=== PATIENT | female | born 1965 | race Caucasian/White ===

== ENCOUNTER 2023-12-01 08:18 | Emergency (ER) | payer SELFPAY ==
[2023-12-01 08:21] VITALS: BP 170/104; BMI 40.6
[2023-12-01 08:42] LABS: % Basophils 0.7 % (0-2); % Eosinophils 0.5 % (0-6); % Immature Granulocytes 0.2 % (0-0.5); % Lymphocytes 29.6 % (20.5-51.1); % Monocytes 4.1 % (1.7-9.3); % Neutrophils 64.9 % (42.2-75.2); Absolute Basophils 0.1 10^3/uL (0-0.2); Absolute Eosinophils 0.1 10^3/uL (0-0.7); Absolute Lymphocytes 2.7 10^3/uL (1.2-3.4); Absolute Monocytes 0.4 10^3/uL (0.1-0.6); Hematocrit 45.4 % (37.0-47.0); Hemoglobin 15.8 g/dL (12.0-16.0); Mean Corp Hgb Conc. 34.8 g/dL (33.0-37.0); Mean Corpuscular Hgb 30.8 pg (27.0-31.0); Mean Corpuscular Volume 88.5 fL (81.0-99.0); Mean Platelet Volume 10.5 fL (7.4-10.4); Nucleated Red Blood Cells % 0 %; Platelet Count 289 10^3/uL (130-400); Red Blood Cell Count 5.13 10^6/uL (4.20-5.40); Red Cell Dist. Width 12.2 % (11.5-14.5); White Blood Cell Count 9.2 10^3/uL (4.8-10.8)
[2023-12-01] MEDS: NSS 1000 IV (08:49)
[2023-12-01 09:08] LABS: ALT (SGPT) 24 U/L (0-35); AST (SGOT) 30 U/L (14-36); Acetaminophen < 10 ug/ml (10-30); Albumin 4.9 g/dl (3.5-5.0); Alkaline Phosphatase 96 U/L (38-126); Blood Urea Nitrogen 15 mg/dl (7-17); Calcium 10.7 mg/dl (8.4-10.2); Carbon Dioxide 21 mmol/L (22-30); Chloride 107 mmol/L (98-107); Estimated Creatinine Clearance 89 ml/min; Glucose 161 mg/dl (70-99); Magnesium 1.7 mg/dl (1.6-2.3); Potassium 4.2 mmol/L (3.5-5.1); Salicylate < 1.0 mg/dl (2.0-20.0); Sodium 139 mmol/L (135-145); Total Bilirubin 0.6 mg/dl (0.2-1.3); eGFR > 60.00
[2023-12-01 09:10] LABS: Alcohol None Detected
[2023-12-01 09:26] LABS: HCG, Serum Qualitative Screen Negative
[2023-12-01] MEDS: ATIVAN 1 MG IV (09:31)
[2023-12-01 10:00] VITALS: BP 141/101
--- NOTE | 2023-12-01 10:12 | ED.GENMED ---
History of Present Illness
General
Chief Complaint: Crisis Evaluation
Source: patient, family and ambulance crew
Time Seen by Provider: 12/01/23 08:19
Travel History
Have you had any contact with someone who has COVID-19?: No
Do you have any symptoms of coronavirus? Fever > 100 degrees, chills, cough, shortness of breath, sore throat, loss of taste or smell, muscle aches, or headache?: No
History of Present Illness
History of Present Illness:
58-year-old female who presents after her son found her to be acting abnormally. The son states that she typically is downstairs drink coffee when he gets up. Today he noticed she was acting in a odd behavior. He then noticed her room was
disheveled. There is a half empty jar of Benadryl that he uses for his allergies. He did also knows there was Tide in the bedroom. EMS reports she did vomit once on the ride over but it did not smell like cleaning solution. Patient does admit
she took a handful or more of Benadryl so she could 'sleep'. Son states that she has been sending text messages that were threatening suicide. The patient has had apparently is somewhat rough social history in the past. Son states that she
typically works with him and is sharp and with it. Today she was extremely confused. Patient is reporting a dry mouth on my evaluation. She denies ingesting any Tide
Past History
Past History
ED Past Medical History: HTN, Hypercholesterolemia and Other (Diverticulitis, shingles, anxiety, depressions, suicidal ideation)
ED Past Surgical History: Orthopedic
Phy Exam
Physical Exam
Physical Exam:
CONSTITUTIONAL Patient alert and oriented to person, place. Vital signs reviewed.
HEAD atraumatic, normocephalic.
EYES eyelids normal to inspection, Pupils equally round and reactive to light, Extraocular muscles intact, Conjunctiva normal, Sclera normal.
NECK normal range of motion, Trachea midline, no jugular venous distention.
RESPIRATORY CHEST No respiratory distress noted, Chest expansion equal, Bilateral breath sounds clear.
CARDIOVASCULAR regular and tachycardic
ABDOMEN abdomen nontender, Bowel sounds normal. No distention.
BACK normal inspection, no obvious deformities
UPPER EXTREMITY range of motion normal, Motor strength normal, no cyanosis, no edema.
LOWER EXTREMITY range of motion normal, Motor strength normal, no cyanosis, no edema.
NEURO Speech normal, No focal motor deficits, confused at times, cranial Nerves intact to screening exam.
SKIN skin warm, dry, and normal in color.
PSYCHIATRIC a bit anxious, sometimes confused.
Course
Orders/Labs/Results
Orders:
Orders
12/01/23 08:19
Electrocardiogram (*1) Stat
Reason for Study: Other
Other Reason for Exam: overdose
Cardiac Monitoring- Treatment ONCE
EKG- Treatment ONCE
Test Result ONCE
12/01/23 08:29
Crisis Consult Urgent
Reason for Consult: depression/thoughts of suicide
12/01/23 08:31
Acetaminophen Urgent
Alcohol Urgent
Complete Blood Count/With Diff Urgent
Comprehensive Metabolic Panel Urgent
Free T4 Urgent
Comment: ADD ON
HCG, Serum Qualitative Screen Urgent
Magnesium Urgent
Comment: ADD ON
Salicylate Urgent
TSH Urgent
Comment: ADD ON
12/01/23 08:43
Add On- LAB Urgent
Tests Added?: TSH, free T4
12/01/23 08:44
Add On- LAB Urgent
Tests Added?: Mg
0.9% Sodium Chloride 1000 ml [Nss] 1,000 ml IV BOLUS
12/01/23 09:26
Lorazepam [Ativan] 1 mg IV NOW STA
12/01/23 10:14
PSYCHIATRY CONSULT Urgent
Consulting Provider: Maurisio Handley
Was physician already notified: Yes
12/01/23 10:33
Electrocardiogram (*1) Urgent
Reason for Study: Other
Other Reason for Exam: OD
EKG- Treatment ONCE
12/01/23 11:41
CT Head W/o Iv Contrast Urgent
Comment:
Reason For Exam: change in ms
12/01/23 16:06
Urinalysis Reflex To Culture Urgent
Date Specimen was Collected: 12/01/23
Time Specimen was Collected: 16:00
Urine Drug Abuse Screen Urgent
Date Specimen was Collected: 12/01/23
Time Specimen was Collected: 16:00
Abnormal Lab Results
12/01/23
08:31
MPV 10.5 H fL
(7.4-10.4)
Carbon Dioxide 21 L mmol/L
(22-30)
Glucose 161 H mg/dl
(70-99)
Calcium 10.7 H mg/dl
(8.4-10.2)
TSH 5.12 H uIU/ml
(0.47-4.68)
Salicylates < 1.0 L mg/dl
(2.0-20.0)
Acetaminophen < 10 L ug/ml
(10-30)
12/01/23 08:31
12/01/23 08:31
Vital Signs
Initial and Last Documented VS:
Initial Vital Signs
Temp Pulse Resp BP
98.6 F 145 22 170/104
12/01/23 08:21 12/01/23 08:21 12/01/23 08:21 12/01/23 08:21
Last Documented Vital Signs
Temp Pulse Resp BP Pulse Ox
99.0 F 110 18 155/104 96
12/01/23 16:04 12/01/23 16:04 12/01/23 16:04 12/01/23 16:04 12/01/23 16:04
MDM/Problems Addressed
MDM/Problems Addressed:
Benadryl overdose, suicidal gestures
*Radiology
Radiology exam reviewed: radiology read reviewed
*Pulse Oximetry
Patient hypoxic: no
*EKG
Interpretation: abnormal
Rate: tachycardiac
Rhythm: sinus
QRS Pattern: normal QRS
Ischemia: non-specific ST changes
*Preschool Education Director Interpretation
Rate: tachycardiac
Interpretation: normal
Rhythm: sinus
*Critical Care Note
Total Time (30-74mins, 75-104mins- exclusive of procedures): 35 minutes
Data Reviewed
Source: patient and family
Prescriptions/Medications Considered But Not Given:
Considered antipsychotics but trial benzodiazepines in light of Benadryl overdose
Patient Management
Discussion with other providers: Stock Transfer Clerk (Case discussed with psychiatry.)
Escalation/DeEscalation of care consider admission/obs:
58-year-old female who overdosed likely on Benadryl. Patient denies ingestion of laundry detergent. In addition, she has had no GI symptoms here in the emergency department. Toxidrome consistent with anticholinergic effect. She is a little bit
red, tachycardic and dry. Psychiatry consult
ED Attending Note
-
Portions of this chart may have been created with voice recognition software.� Occasional wrong word or��sound alike� substitutions may have occurred due to the inherent limitations of voice recognition software.
Discharge Plan
Departure
Patient Disposition: Psych Facility
Date of Disposition: 12/01/23
Time of Disposition: 10:12
Discharge Problem:
Suicidal ideation, benadryl overdose
Referrals:
UNKNOWN - PT DOES,NOT KNOW [Family Provider] -
Interventions
Interventions:
*Risk Screen - Suicide Last Done: 12/01/23 08:21
*General Assessment Last Done: 12/01/23 08:21
*Neglect/Abuse Screening Last Done: 12/01/23 08:21
ED- Fall Risk Assessment Last Done: 12/01/23 08:32
*ED COVID-19 Vaccine History Last Done: 12/01/23 08:21
ED-Psychological Assessment Last Done: 12/01/23 08:32
Discharge Date and Time
Print Language: YAKUT
[2023-12-01 10:26] LABS: Free T4 1.06 ng/dl (0.78-2.19)
[2023-12-01 10:41] LABS: TSH 5.12 uIU/ml (0.47-4.68)
--- NOTE | 2023-12-01 15:55 | W.PN.UPDATE ---
Update Note
Progress Note Update
Pt seen for 302 exam. Pt admitted after reported OD on antihistamine. Pt noted found by son apparently hallucinating and confused, with open bottle of Tide and half-empty bottle of antihistamine. Pt left a 3-page single-spaced typed suicide note,
with rambling but specific content about her impending , stating she does not want to be a burden. Pt seen resting on stretcher. Pt gives irrelevant answers to questions, stated it is a :very long story' regarding her OD. Pt admits to having
a 'breakdown.' Reviewed case briefly with ED physician, who reports the medical findings are consistent with antihistamine OD. Pt still seems to be a little confused/disorganized. QTc was 517 at 8:19 am, improved to 447 at 10:33 am. Pt is not
noted to be on any Rx meds. Pt is not able to give additional history. Insight and judgment appear limited.
Imp: Unspecified Depressive d/o, R/o Bipolar d/o
Rec: [id number] upheld. Will pursue inpatient psych placement
[2023-12-01 16:04] VITALS: BP 155/104
[2023-12-01 16:34] LABS: Urine Albumin Negative (Neg - Trace); Urine Bilirubin Negative (Negative); Urine Character Clear (Clear); Urine Color Straw; Urine Glucose Negative (Negative); Urine Ketone Negative (Negative); Urine Leukocyte Negative (Negative); Urine Nitrite Negative (Negative); Urine Occult Blood Negative (Negative); Urine Specific Gravity 1.015 (<1.030); Urine Urobilinogen Negative (Neg - 1+)
[2023-12-01 16:56] LABS: Amphetamines Negative (Negative); Barbiturates Negative (Negative); Benzodiazepines Negative (Negative); Buprenorphine Negative (Negative); Cocaine Negative (Negative); Marijuana Negative (Negative); Methadone Negative (Negative); Methamphetamines Negative (Negative); Opiates Negative (Negative); Phencyclidine Negative (Negative); Tricyclic Antidepressants Negative (Negative)
--- NOTE | 2023-12-02 09:10 | ED.CRISIS ---
ED Crisis Note
ED Crisis Note
Subjective:
I spoke to son at bedside. Patient feels that she needs her metoprolol.
Objective:
Patient just slightly agitated but overall is cooperative
Assessment/Plan:
Will give metoprolol 25 mg twice daily starting now
[2023-12-02 09:16] VITALS: BP 150/113
[2023-12-02] MEDS: LOPRESSOR 25 MG PO (09:16)
== END 2023-12-02 09:29 ==
LOC: EMR 08:18
PROVIDERS: CONSULT PHYSICIAN Psychiatry & Neurology Psychiatry; EMERGENCY PHYSICIAN Emergency Medicine
DX: R45.851 Suicidal ideations (principal); T45.0X2A Poisoning by antiallergic and antiemetic drugs, intentional self-harm, initial encounter
CPT/HCPCS: 99291; 96374; 96361; 70450; 80053; 80143; 80179; 80306; 81003; 82077; 83735; 84439; 84443; 84703; 85025; 93005